=== PATIENT | male | born 1955 | race African-American/Black ===

== ENCOUNTER 2024-05-18 11:45 | Emergency (ER) | payer MEDICARE, MEDICAID ==
[~2024-05-18] VITALS: Ht 185.4 cm; Wt 129.6 kg
[2024-05-18 11:50] VITALS: TEMP 98.1
[2024-05-18] MEDS: IBUPROFEN 400 MG TABLET PO ONE (12:23)
[2024-05-18] MEDS: ACETAMINOPHEN 500 MG TABLET PO ONE (12:23)
[2024-05-18] MEDS: LIDOCAINE 5% TRANSDERMAL PATCH TD ONE (12:24)
[2024-05-18] MEDS ORDERED: LIDO700A15 TP (13:35)
[2024-05-18] MEDS ORDERED: IBUP-1506 PO (13:35)
[2024-05-18] MEDS ORDERED: ACET-3385 PO (13:35)
[2024-05-18 14:01] VITALS: BP 151/88; PULSE 86; RESP 16; O2SAT 97
== END 2024-05-18 14:09 | disposition home or self-care (01) ==
LOC: EMS 11:47
DX: M54.2 Cervicalgia (principal); M25.512 Pain in left shoulder; E11.9 Type 2 diabetes mellitus without complications; I10 Essential (primary) hypertension; V43.52XA Car driver injured in collision with other type car in traffic accident, initial encounter; Y93.89 Activity, other specified; Y92.410 Unspecified street and highway as the place of occurrence of the external cause; Y99.8 Other external cause status
CPT/HCPCS: 82962; 99284; Z7502; Z7610